=== PATIENT | male | born 1985 | race Caucasian/White ===

== ENCOUNTER 2021-03-06 18:06 | Emergency (ER) | payer SELFPAY ==
[~2021-03-06] VITALS: Ht 175.3 cm; Wt 90.9 kg
[2021-03-06 18:07] VITALS: BP 150/77; PULSE 88; TEMP 97.2
[2021-03-06] MEDS ORDERED: CEPHALEXIN500 M1 PO (18:58)
== END 2021-03-06 19:31 | disposition home or self-care (01) ==
LOC: COL.ER 18:06
DX: S91.331A Puncture wound without foreign body, right foot, initial encounter (principal); F17.210 Nicotine dependence, cigarettes, uncomplicated; X58.XXXA Exposure to other specified factors, initial encounter